=== PATIENT | male | born 1970 | race Caucasian/White ===

== ENCOUNTER 2021-04-28 10:11 | Emergency (ER) | payer SELFPAY ==
[2021-04-28] MEDS ORDERED: NA CHLORIDE 0.9% 1,000 ML ONE (11:12)
[2021-04-28] MEDS ORDERED: ZIPRASIDONE MESYLA 20 MG/VIAL IM ONE (11:12)
[2021-04-28] MEDS ORDERED: LORazepam 2 MG/ML VIAL ONE (11:12)
[2021-04-28 11:21] LABS: Absolute Lymphocytes (CBC) 2.2 K/uL (0.7-4.9); Basophils % 0.4 % (0-1.3); Hematocrit 43.2 % (39.6-49.0); Lymphocytes % 16.3 % (15.3-44.8); MPV 8.6 fL (7.6-11.3); RBC Red Blood Cell Count 4.63 M/uL (4.33-5.43)
[2021-04-28 11:42] LABS: ALT/SGPT 55 U/L (12-78); AST/SGOT 80 U/L (15-37); Albumin 4.2 g/dL (3.4-5.0); Alkaline Phosphatase 93 U/L (45-117); BUN Blood Urea Nitrogen 20 mg/dL (7-18); Bicarbonate 22 mmol/L (21-32); Bilirubin Direct 0.3 mg/dL (0-0.2); Bilirubin Total 1.5 mg/dL (0.2-1.0); Glucose Level 98 mg/dL (74-106); Potassium 3.5 mmol/L (3.5-5.1); Protein, Total 7.8 g/dL (6.4-8.2); Sodium Level 132 mmol/L (136-145)
[2021-04-28 12:13] LABS: Urine Blood Negative (Negative); Urine Glucose Negative (Negative); Urine Protein Negative (Negative); Urine Specific Gravity <=1.005 (1.005-1.030)
[2021-04-28 12:31] LABS: Barbiturates NEGATIVE (NEGATIVE); Benzodiazepines NEGATIVE (NEGATIVE); Cocaine NEGATIVE (NEGATIVE); METHAMPHETAM POSITIVE (NEGATIVE); Methadone NEGATIVE (NEGATIVE); Opiates NEGATIVE (NEGATIVE); Phencyclidine NEGATIVE (NEGATIVE); THC Cannibis POSITIVE (NEGATIVE)
--- NOTE | 2021-04-28 16:54 | RAD REPORT ---
EXAM DESCRIPTION: Luis Alberto Single View04/28/2021 3:59 pm CLINICAL HISTORY: Cough COMPARISON: none FINDINGS: The lungs appear clear of acute infiltrate. The heart is normal size IMPRESSION: No acute abnormalities displayed
[2021-04-28] MEDS ORDERED: ARIPiprazole 5 MG TAB PO SCH (19:00)
[2021-04-28] MEDS ORDERED: lamoTRIgine 100 MG TAB PO SCH (19:00)
--- NOTE | 2021-04-28 19:01 | ER ---
Nurse's Notes [facility] Name: Oleksandr Rojo Age: 51 yrs Sex: Male : 1970 Arrival Date: 04/28/2021 Time: 10:20 Bed 15 [facility] MD: Diagnosis: Schizophrenia;Bipolar disorder;Abuse of non-psychoactive substances Presentation: 04/28 10:20 Chief complaint: Patient states: Pt reports that he has been off his medication for 6 ss months and just needs to get back on his medication. Has been having homicidal thoughts today. Coronavirus screen: Client denies travel out of the [place] in the last 14 days. Ebola Screen: Patient denies exposure to infectious person. Patient denies travel to an Ebola-affected area in the 21 days before illness onset. Initial Sepsis Screen: Does the patient meet any 2 criteria? No. Patient's initial sepsis screen is negative. Does the patient have a suspected source of infection? No. Patient's initial sepsis screen is negative. Risk Assessment: Do you want to hurt yourself or someone else? Patient reports no desire to harm self or others. Onset of symptoms was April 28, 2021. 10:20 Method Of Arrival: Law Enforcement: [facility] [place] 10:20 Acuity: BENIGNO 2 ss Triage Assessment: 11:18 General: Appears distressed, uncomfortable, Behavior is agitated, combative, restless, tr6 Smells of foul odor. Pain: Denies pain. EENT: missing teeth. Historical: - Allergies: 10:37 No Known Allergies; ss - Home Meds: 10:37 Unknown. Has been out for 6 months [Active]; ss - PMHx: 10:37 Bipolar disorder; Schizophrenia; ADD/ADHD; PTSD; ss - PSHx: 10:37 None; ss - Immunization history:: Adult Immunizations up to date. - Social history:: Smoking status: Patient reports the use of cigarette tobacco products, smokes one pack cigarettes per day. Patient uses alcohol, "1 beer a month.". street drugs, marijuana. Screenin:15 Abuse screen:. Nutritional screening: No deficits noted. Tuberculosis screening: No tr6 symptoms or risk factors identified. Fall Risk None identified. Assessment: 11:21 General: Appears distressed, uncomfortable, unkempt, Behavior is Smells of foul odor. tr6 Pain: Denies pain. Neuro: Speech pressed speech. Cardiovascular: No deficits noted. Respiratory: No deficits noted. GI: No deficits noted. chafed skin on inner thighs. : No deficits noted. EENT: missing teeth. Derm: No deficits noted. Musculoskeletal: No deficits noted. 13:00 General: Appears pt sleeping comfortably in bed, occasionally yells out random phrases. tr6 repirations even and unlabored. sitter at bedside. will continue to monitor. 15:00 Reassessment: pt OOB to use urinal independently. tr6 17:00 Reassessment: pt sleeping. sitter at bedside. tr6 Psych: 17:58 [place] Suicide Severity Screening: In the past month, have you wished you were tr6 or wished you could go to sleep and not wake up? Patient responds "yes." "In the past month, have you actually had any thoughts of killing yourself?" Patient responds "yes." "In your lifetime, have you ever done anything, started to do anything, or prepared to do anything to end your life?" Patient responds "yes.". Subjective: Patient's mood is Delusions are Hallucinations are auditory, Having thoughts of homicide. Objective: Patient is aggressive, Speech is rambling, rapid, pressured, Affect is. Interventions: Removed personal items and placed in bag. Searched person for dangerous items. Urine collected and sent for urine drug test. Patient reassessed during use of restraints. Safety Checks: Personal items have been removed. Door is open. No visitors are present at this time. Vital Signs: 10:20 Weight 86.18 kg; Height 5 ft. 10 in. (177.80 cm); Pain 5/10; ss 10:32 BP 114 / 90; Pulse 96; Resp 22; Temp 98.6; Pulse Ox 100% on R/A; em1 10:20 Body Mass Index 27.26 (86.18 kg, 177.80 cm) ED Course: 10:20 Patient arrived in ED. am2 10:22 Calvin Sosa MD is Attending Physician. annalee 10:34 Triage completed. ss 10:35 Rosemarie Gonzalez RN is Primary Nurse. tr6 10:37 Arm band placed on right wrist. ss 10:54 Inserted saline lock: 20 gauge in right antecubital area, using aseptic technique. ss Blood collected. 11:09 EKG done, by ED staff, reviewed by Calvin Sosa MD. 3 11:15 Patient has correct armband on for positive identification. Bed in low position. Call tr6 light in reach. Pulse ox on. NIBP on. Sitter at bedside. Noise minimized. Visitors limited. Lights dimmed. Moved to private room. Warm blanket given. Diet tray ordered. Diet: Tolerated well. Patient is placed in psych hold. 11:15 No provider procedures requiring assistance completed. tr6 12:15 Urine collected: clean catch specimen, clear. 3 15:59 Chest Single View XRAY In Process Unspecified. EDOK 16:23 Primary Nurse role handed off by Rosemarie Gonzalez, FRANCIS tr6 16:44 Rosemarie Gonzalez, FRANCIS is Primary Nurse. tr6 19:00 Lj Garg MD is Referral Physician. [facility] 19:39 IV discontinued, intact, bleeding controlled. 8 Administered Medications: 11:04 Drug: Geodon (ziprasidone) 20 mg Route: IM; Site: right deltoid; tr6 11:05 Drug: NS 0.9% 1000 ml Route: IV; Rate: 1 bolus; Site: right antecubital; tr6 11:05 Drug: Ativan (LORazepam) 2 mg Route: IVP; Site: right antecubital; tr6 19:13 Drug: Abilify 5 mg Route: PO; tr6 19:13 Drug: LaMICtal (lamoTRIgine) 50 mg Route: PO; tr6 Outcome: 19:01 Discharge ordered by . [facility] 19:38 Discharged to home ambulatory, with friend, via taxi [facility] 19:38 Condition: good 19:38 Discharge instructions given to patient, family, Instructed on discharge instructions, follow up and referral plans. medication usage, Demonstrated understanding of instructions, follow-up care, medications, Prescriptions given X 2. 19:39 Patient left the ED. [id number] Signatures: Dispatcher [employer] EDOK Calvin Sosa MD MD cha Martinez, Eric em1 Sue Mack RN RN Valentina Carney Deanna 3 Jimenez Ellsworth RN RN Rosemarie Escudero, FRANCIS RN tr6 Corrections: (The following items were deleted from the chart) 11:21 GI: No deficits noted. geri tr6
--- NOTE | 2021-04-28 19:01 | EDPHYS ---
Physician Documentation [facility] Name: Oleksandr Rojo Age: 51 yrs Sex: Male : 1970 Arrival Date: 04/28/2021 Time: 10:20 Bed 15 Private MD: ED Physician Calvin Sosa HPI: 04/28 11:14 This 51 yrs old Male presents to ER via Law Enforcement with complaints of annalee Psych Problem. 11:14 The patient presents to the emergency department with depression, homicidal ideation, annalee the patient has harmed or wants to harm random. Onset: The symptoms/episode began/occurred 3 day(s) ago. Past psychiatric history: Prior diagnosis: bipolar disorder. Associated signs and symptoms: The patient has no apparent associated signs or symptoms. Severity of symptoms: At their worst the symptoms were mild in the emergency department the symptoms are unchanged. The patient has not experienced similar symptoms in the past. Historical: - Allergies: 10:37 No Known Allergies; ss - Home Meds: 10:37 Unknown. Has been out for 6 months [Active]; ss - PMHx: 10:37 Bipolar disorder; Schizophrenia; ADD/ADHD; PTSD; ss - PSHx: 10:37 None; ss - Immunization history:: Adult Immunizations up to date. - Social history:: Smoking status: Patient reports the use of cigarette tobacco products, smokes one pack cigarettes per day. Patient uses alcohol, "1 beer a month.". street drugs, marijuana. ROS: 11:22 Constitutional: Negative for fever, chills, and weight loss, Eyes: Negative for injury, annalee pain, redness, and discharge, ENT: Negative for injury, pain, and discharge, Neck: Negative for injury, pain, and swelling, Cardiovascular: Negative for chest pain, palpitations, and edema, Respiratory: Negative for shortness of breath, cough, wheezing, and pleuritic chest pain, Abdomen/GI: Negative for abdominal pain, nausea, vomiting, diarrhea, and constipation, Back: Negative for injury and pain, : Negative for injury, bleeding, discharge, and swelling, MS/Extremity: Negative for injury and deformity, Skin: Negative for injury, rash, and discoloration, Neuro: Negative for headache, weakness, numbness, tingling, and seizure, Allergy/Immunology: Negative for hives, rash, and allergies, Endocrine: Negative for neck swelling, polydipsia, polyuria, polyphagia, and marked weight changes, Hematologic/Lymphatic: Negative for swollen nodes, abnormal bleeding, and unusual bruising. 11:22 Psych: Positive for anxiety, depression. Exam: : Constitutional: This is a well developed, well nourished patient who is awake, alert, annalee and in no acute distress. Head/Face: Normocephalic, atraumatic. Eyes: Pupils equal round and reactive to light, extra-ocular motions intact. Lids and lashes normal. Conjunctiva and sclera are non-icteric and not injected. Cornea within normal limits. Periorbital areas with no swelling, redness, or edema. ENT: Nares patent. No nasal discharge, no septal abnormalities noted. Tympanic membranes are normal and external auditory canals are clear. Oropharynx with no redness, swelling, or masses, exudates, or evidence of obstruction, uvula midline. Mucous membranes moist. Neck: Trachea midline, no thyromegaly or masses palpated, and no cervical lymphadenopathy. Supple, full range of motion without nuchal rigidity, or vertebral point tenderness. No Meningismus. Chest/axilla: Normal chest wall appearance and motion. Nontender with no deformity. No lesions are appreciated. Cardiovascular: Regular rate and rhythm with a normal S1 and S2. No gallops, murmurs, or rubs. Normal PMI, no JVD. No pulse deficits. Respiratory: Lungs have equal breath sounds bilaterally, clear to auscultation and percussion. No rales, rhonchi or wheezes noted. No increased work of breathing, no retractions or nasal flaring. Abdomen/GI: Soft, non-tender, with normal bowel sounds. No distension or tympany. No guarding or rebound. No evidence of tenderness throughout. Back: No spinal tenderness. No costovertebral tenderness. Full range of motion. Male : Normal genitalia with no discharge or lesions. Skin: Warm, dry with normal turgor. Normal color with no rashes, no lesions, and no evidence of cellulitis. MS/ Extremity: Pulses equal, no cyanosis. Neurovascular intact. Full, normal range of motion. Neuro: Awake and alert, GCS 15, oriented to person, place, time, and situation. Cranial nerves II-XII grossly intact. Motor strength 5/5 in all extremities. Sensory grossly intact. Cerebellar exam normal. Normal gait. 11:22 Psych: Behavior/mood is anxious, Affect is animated, Oriented to person, place, time, Patient has no thoughts/intents to harm self or others. Judgement / Insight is normal. Memory is normal. Delusions/hallucinations are not present. 11:25 ECG was reviewed by the Attending Physician. annalee Vital Signs: 10:20 Weight 86.18 kg; Height 5 ft. 10 in. (177.80 cm); Pain 5/10; ss 10:32 BP 114 / 90; Pulse 96; Resp 22; Temp 98.6; Pulse Ox 100% on R/A; em1 10:20 Body Mass Index 27.26 (86.18 kg, 177.80 cm) ss MDM: 10:22 Patient medically screened. annalee 14:16 Differential diagnosis: drug withdrawal. acute psychotic break, depression, psychosis annalee secondary to non-compliance. Data reviewed: vital signs, nurses notes, lab test result(s), EKG. Data interpreted: surveillance monitor: rate is 96 beats/min, rhythm is regular, Pulse oximetry: on room air is 100 %. Test interpretation: by ED physician or midlevel provider: ECG. Counseling: I had a detailed discussion with the patient and/or guardian regarding: the historical points, exam findings, and any diagnostic results supporting the discharge/admit diagnosis, lab results. 04/28 10:23 Order name: Acetaminophen; Complete Time: 13:03 04/28 10:23 Order name: Basic Metabolic Panel; Complete Time: 13:03 04/28 10:23 Order name: CBC with Diff; Complete Time: 13:03 04/28 10:23 Order name: ETOH Level; Complete Time: 13:03 04/28 10:23 Order name: Hepatic Function; Complete Time: 13:03 04/28 10:23 Order name: PT-INR; Complete Time: 13:03 04/28 10:23 Order name: Ptt, Activated; Complete Time: 13:03 04/28 10:23 Order name: Salicylate; Complete Time: 13:03 04/28 10:23 Order name: Urine Drug Screen; Complete Time: 13:03 04/28 11:24 Order name: Chest Single View XRAY; Complete Time: 18:51 04/28 12:13 Order name: Urine Dipstick-Ancillary; Complete Time: 13:03 EDOK 04/28 10:23 Order name: Suicide Precautions; Complete Time: 11:02 [facility] 04/28 10:23 Order name: EKG; Complete Time: 10:24 [facility] 04/28 10:23 Order name: EKG - Nurse/Tech; Complete Time: 11:06 [facility] 04/28 10:23 Order name: IV Saline Lock; Complete Time: 11:02 [facility] 04/28 10:23 Order name: Labs collected and sent; Complete Time: 11:02 [facility] 04/28 10:23 Order name: Suicide Screening ([place]); Complete Time: 11:02 [facility] 04/28 10:23 Order name: Urine Dipstick-Ancillary (obtain specimen); Complete Time: 12:15 [facility] 04/28 11:13 Order name: Diet Finger Food; Complete Time: 11:14 tr6 EC:25 Rate is 90 beats/min. Rhythm is regular. QRS [place] is Normal. [place] interval is normal. QRS annalee interval is normal. QT interval is prolonged. Clinical impression: NSR w/ Non-specific ST/T Changes and No evidence of ischemia. Administered Medications: 11:04 Drug: Geodon (ziprasidone) 20 mg Route: IM; Site: right deltoid; tr6 11:05 Drug: NS 0.9% 1000 ml Route: IV; Rate: 1 bolus; Site: right antecubital; tr6 11:05 Drug: Ativan (LORazepam) 2 mg Route: IVP; Site: right antecubital; tr6 19:13 Drug: Abilify 5 mg Route: PO; tr6 19:13 Drug: LaMICtal (lamoTRIgine) 50 mg Route: PO; tr6 Disposition: 04/28/21 19:01 Discharged to Home. Impression: Schizophrenia, Bipolar disorder, Abuse of non-psychoactive substances. - Condition is Stable. - Discharge Instructions: Bipolar Disorder, Substance Use Disorder, Schizophrenia. - Prescriptions for Abilify 5 mg Oral tablet - take 1 tablet by ORAL route once daily; 14 tablet. Lamictal 25 mg Oral tablet - take 1 tablet by ORAL route 2 times per day; 20 tablet. - Medication Reconciliation Form, Thank You Letter, Antibiotic Education, Prescription Opioid Use form. - Follow up: Private Physician; When: 2 - 3 days; Reason: Recheck today's complaints, Continuance of care, Re-evaluation by your physician. Follow up: Lj Garg MD; When: 2 - 3 days; Reason: Recheck today's complaints, Re-evaluation by your physician. - Problem is new. - Symptoms have improved. Signatures: Dispatcher [employer] EDMS Calvin Sosa MD MD cha Smirch, Shelby, RN RN Jimenez Ellsworth RN RN jm8 Rosemarie Gonzalez RN RN tr6 Corrections: (The following items were deleted from the chart) 19:39 19:01 04/28/2021 19:01 Discharged to Home. Impression: Schizophrenia; Bipolar disorder; jm8 Abuse of non-psychoactive substances. Condition is Stable. Forms are Medication Reconciliation Form, Thank You Letter, Antibiotic Education, Prescription Opioid Use. Follow up: Private Physician; When: 2 - 3 days; Reason: Recheck today's complaints, Continuance of care, Re-evaluation by your physician. Follow up: Lj Garg; When: 2 - 3 days; Reason: Recheck today's complaints, Re-evaluation by your physician. Problem is new. Symptoms have improved. annalee
[2021-04-28 19:49] VITALS: BP 114/90; TEMP 98.6; O2SAT 100
--- NOTE | 2021-04-29 07:39 | EKG ---
Test Date: 2021-04-28 Test Time: 11:09:28 Load Test Mechanic: [place] MEASUREMENT RESULTS: Intervals: Rate: 90 CT: 154 QRSD: 76 QT: 394 QTc: 481 [place]: P: 60 CT: 154 QRS: 59 T: 58 INTERPRETIVE STATEMENTS: Normal sinus rhythm Prolonged QT Abnormal ECG No previous ECG available for comparison Electronically Signed On 04-29-21 07:36:01 CDT by Riley Burris
== END 2021-04-28 19:39 | disposition home or self-care (01) ==
LOC: ER 10:11
DX: F55.8 Abuse of other non-psychoactive substances (principal); F20.9 Schizophrenia, unspecified; F31.9 Bipolar disorder, unspecified; F17.210 Nicotine dependence, cigarettes, uncomplicated
CPT/HCPCS: 36415; 71045; 80048; 80076; 80307; 80320; 80329; 81003; 85025; 85610; 85730; 93005; 96372; 96374; 99285; J3486; J7030

== ENCOUNTER 2021-06-29 10:13 | Emergency (ER) | payer SELFPAY ==
[2021-06-29] MEDS ORDERED: DIPHENHYDRAMINE 25 MG TAB/CAP ONE (11:30)
[2021-06-29] MEDS ORDERED: FAMOTIDINE 20 MG TAB ONE (11:30)
[2021-06-29] MEDS ORDERED: dexAMETHasone 10 MG/ML VIAL ONE (11:30)
--- NOTE | 2021-06-29 11:34 | ER ---
Nurse's Notes [facility] Name: Oleksandr Rojo Age: 51 yrs Sex: Male : 1970 Arrival Date: 06/29/2021 Time: 10:15 Bed DIS2 Private MD: Diagnosis: Urticaria, unspecified Presentation: 06/29 10:45 Chief complaint: Patient states: Hives that began 1.5 days ago. Pt reports that this ss has occurred before. Benadryl reportedly last taken at 0700 this morning. Coronavirus screen: Client denies travel out of the [place] in the last 14 days. Ebola Screen: Patient denies exposure to infectious person. Patient denies travel to an Ebola-affected area in the 21 days before illness onset. Onset: The symptoms/episode began/occurred 1.5 day(s) ago. Anaphylaxis evaluation, no signs or symptoms of anaphylaxis were noted. Initial Sepsis Screen: Does the patient meet any 2 criteria? No. Patient's initial sepsis screen is negative. Does the patient have a suspected source of infection? No. Patient's initial sepsis screen is negative. Risk Assessment: Do you want to hurt yourself or someone else? Patient reports no desire to harm self or others. Onset of symptoms was June 27, 2021. 10:45 Method Of Arrival: Ambulatory ss 10:45 Acuity: BENIGNO 4 ss Historical: - Allergies: 10:47 No Known Allergies; ss - PMHx: 10:47 ADD/ADHD; Bipolar disorder; PTSD; Schizophrenia; ss - Immunization history:: Client reports having NOT received the Covid vaccine. - Social history:: Smoking status: Patient reports the use of cigarette tobacco products, smokes one-half pack cigarettes per day. Screenin:48 Abuse screen: Denies threats or abuse. Denies injuries from another. Nutritional ss screening: No deficits noted. Tuberculosis screening: Has had TB. Fall Risk None identified. Assessment: 10:48 General: Appears uncomfortable, Behavior is calm, cooperative, Denies fever, feeling ss ill, fatigue, chills. Pain: Denies pain. Neuro: Level of Consciousness is awake, alert, obeys commands, Oriented to person, place, time, situation. Cardiovascular: Capillary refill < 3 seconds is brisk in bilateral fingers. Respiratory: Airway is patent Trachea midline Respiratory effort is even, unlabored, Respiratory pattern is regular, symmetrical, Breath sounds are clear bilaterally. Denies cough, shortness of breath. EENT: Oral mucosa is moist. Derm: Rash noted that is red, raised, urticaria, on right ear, left ear, back, chest, right arm, left arm, right leg and left leg. Vital Signs: 10:45 BP 130 / 85; Pulse 109; Resp 20; Temp 97.9; Pulse Ox 98% ; Weight 88.45 kg; Height 5 ss ft. 11 in. (180.34 cm); Pain 0/10; 10:45 Body Mass Index 27.20 (88.45 kg, 180.34 cm) ED Course: 10:15 Patient arrived in ED. mr 10:47 Triage completed. ss 10:47 Arm band placed on right wrist. ss 10:48 Patient has correct armband on for positive identification. Bed in low position. Call light in reach. 10:58 Genaro Shah NP is PHCP. pm1 10:58 Elvis Nava is Attending Physician. pm1 11:39 No provider procedures requiring assistance completed. Patient did not have IV access hb during this emergency room visit. Administered Medications: 11:11 Drug: Pepcid (famotidine) 20 mg Route: PO; hb 11:39 Follow up: Response: No adverse reaction hb 11:11 Drug: Decadron (dexamethasone) 10 mg Route: IM; Site: right deltoid; hb 11:38 Follow up: Response: No adverse reaction hb 11:11 Drug: Benadryl (diphenhydrAMINE) 25 mg Route: PO; hb 11:38 Follow up: Response: No adverse reaction hb Outcome: 11:34 Discharge ordered by MD. pm1 11:39 Discharged to home ambulatory. hb 11:39 Condition: stable 11:39 Discharge instructions given to patient, Instructed on discharge instructions, follow up and referral plans. medication usage, Demonstrated understanding of instructions, follow-up care, medications, Prescriptions given X 3. 11:40 Patient left the ED. hb Signatures: Marcos Hillary MackSue, FRANCIS RN Genaro Shah, [employer] WORKER pm1 Rosmery Bo RN RN hb
--- NOTE | 2021-06-29 11:34 | EDPHYS ---
Physician Documentation [facility] Name: Oleksandr Rojo Age: 51 yrs Sex: Male : 1970 Arrival Date: 06/29/2021 Time: 10:15 Bed DIS2 Private MD: ED Physician Elvis Nava HPI: 06/29 10:59 This 51 yrs old Male presents to ER via Ambulatory with complaints of Hives. pm1 10:59 The patient's rash thought to be caused by an unknown cause. The rash is located on the pm1 body diffusely. The rash can be described as urticarial. Onset: The symptoms/episode began/occurred 1.5 day(s) ago. Associated signs and symptoms: Pertinent positives: itching, Pertinent negatives: difficulty breathing, swelling of lips, vomiting, wheezing. Severity of symptoms: in the emergency department the symptoms are worse. Treatment given at home: Benadryl. The patient has not experienced similar symptoms in the past. The patient has not recently seen a physician. Historical: - Allergies: 10:47 No Known Allergies; ss - PMHx: 10:47 ADD/ADHD; Bipolar disorder; PTSD; Schizophrenia; ss - Immunization history:: Client reports having NOT received the Covid vaccine. - Social history:: Smoking status: Patient reports the use of cigarette tobacco products, smokes one-half pack cigarettes per day. ROS: 10:59 Constitutional: Negative for fever, chills, and weight loss. pm1 10:59 Cardiovascular: Negative for chest pain, palpitations, and edema, Respiratory: Negative for shortness of breath, cough, wheezing, and pleuritic chest pain, Abdomen/GI: Negative for abdominal pain, nausea, vomiting, diarrhea, and constipation, MS/Extremity: Negative for injury and deformity. 10:59 Neuro: Negative for headache, weakness, numbness, tingling, and seizure. 10:59 Skin: Positive for rash, diffusely. 10:59 All other systems are negative. Exam: 10:59 Constitutional: This is a well developed, well nourished patient who is awake, alert, pm1 and in no acute distress. Head/Face: Normocephalic, atraumatic. 10:59 Cardiovascular: Exam negative for acute changes, Rate: normal, Rhythm: regular, Pulses: no pulse deficits are appreciated. 10:59 Respiratory: Exam negative for acute changes, respiratory distress, shortness of breath. 10:59 Skin: Appearance: normal except for affected area, consistent with urticaria, and is diffusely located. 10:59 Neuro: Exam negative for acute changes, Motor: moves all fours, Gait: is steady, at a normal pace, without difficulty. Vital Signs: 10:45 BP 130 / 85; Pulse 109; Resp 20; Temp 97.9; Pulse Ox 98% ; Weight 88.45 kg; Height 5 ss ft. 11 in. (180.34 cm); Pain 0/10; 10:45 Body Mass Index 27.20 (88.45 kg, 180.34 cm) ss MDM: 10:58 Patient medically screened. pm1 11:30 Data reviewed: vital signs. Data interpreted: Pulse oximetry: on room air is 98 %. pm1 Interpretation: normal. Counseling: I had a detailed discussion with the patient and/or guardian regarding: the historical points, exam findings, and any diagnostic results supporting the discharge/admit diagnosis, the need for outpatient follow up, an allergy/air pollution specialist, a family practitioner, to return to the emergency department if symptoms worsen or persist or if there are any questions or concerns that arise at home. Administered Medications: 11:11 Drug: Pepcid (famotidine) 20 mg Route: PO; hb 11:39 Follow up: Response: No adverse reaction hb 11:11 Drug: Decadron (dexamethasone) 10 mg Route: IM; Site: right deltoid; hb 11:38 Follow up: Response: No adverse reaction hb 11:11 Drug: Benadryl (diphenhydrAMINE) 25 mg Route: PO; hb 11:38 Follow up: Response: No adverse reaction hb Disposition: 16:46 Co-signature as Attending Physician, Elvis Naav I agree with the assessment and plan sp3 of care. Disposition Summary: 06/29/21 11:34 Discharge Ordered Location: Home pm1 Problem: new pm1 Symptoms: have improved pm1 Condition: Stable pm1 Diagnosis - Urticaria, unspecified pm1 Followup: pm1 - With: Emergency Department - When: As needed - Reason: Worsening of condition Followup: pm1 - With: Private Physician - When: 2 - 3 days - Reason: Recheck today's complaints, Continuance of care, Re-evaluation by your physician Discharge Instructions: - Discharge Summary Sheet pm1 - Hives pm1 Forms: - Medication Reconciliation Form pm1 - Thank You Letter pm1 - Antibiotic Education pm1 - Prescription Opioid Use pm1 Prescriptions: - Benadryl 25 mg Oral Capsule - take 1 capsule by ORAL route every 6 hours As needed; 30 tablet; Refills: 0, pm1 Product Selection Permitted - Pepcid 20 mg Oral Tablet - take 1 tablet by ORAL route every 12 hours for 10 days; 20 tablet; Refills: 0, pm1 Product Selection Permitted - Prednisone 20 mg Oral Tablet - take 3 tablets by ORAL route once daily for 5 days; 15 tablet; Refills: 0, pm1 Product Selection Permitted Signatures: Sue Mack RN RN ss Genaro Shah, STILL OPERATOR STILL OPERATOR pm1 Rosmery Bo RN RN Elvis Nava sp3
[2021-06-29 11:46] VITALS: BP 130/85; TEMP 97.9; O2SAT 98
== END 2021-06-29 11:40 | disposition home or self-care (01) ==
LOC: ER 10:13
DX: L50.9 Urticaria, unspecified (principal); F17.210 Nicotine dependence, cigarettes, uncomplicated
CPT/HCPCS: 96372; 99283; J1100